=== PATIENT | female | born 1990 | race Caucasian/White ===

== ENCOUNTER 2022-06-25 19:43 | Emergency (ER) | payer BC ==
[~2022-06-25] VITALS: Ht 165.1 cm; Wt 136.4 kg
[~2022-06-25 19:43] MED LIST: LEXAPRO 10MG10 MG PO
[2022-06-25 19:51] VITALS: TEMP 97.9
[2022-06-25 22:58] LABS: COLLECTION METHOD CLEAN CATCH
[2022-06-25 23:07] LABS: SQUAMOUS EPITHELIAL None Seen /hpf (0-10); URINE BACTERIA Rare /hpf (NONE SEEN); URINE RBC 0-2 /hpf (0-2)
[2022-06-25 23:08] LABS: URINE APPEARANCE Clear (CLEAR/HAZY); URINE COLOR Yellow (YELLOW)
[2022-06-25 23:09] LABS: PH 5.5 (5-8); URINE BLOOD TRACE-INTACT (NEGATIVE); URINE GLUCOSE Negative (NEGATIVE); URINE KETONE Negative (NEGATIVE); URINE NITRATE Negative (NEGATIVE); URINE PROTEIN(semi-quant) Negative (NEGATIVE); URINE UROBILINOGEN 0.2 (NEGATIVE)
[2022-06-25 23:18] LABS: TRICYCLIC ANTIDEPRESS URINE NEGATIVE
[2022-06-25 23:20] LABS: BASO # 0.1 K/mm3 (0.0-0.2); BASO % 0.7 % (0.0-2.0); EOS # 0.2 K/mm3 (0.0-0.7); EOS % 2.1 % (0.0-4.0); GRAN # 4.5 K/mm3 (1.4-6.5); GRAN % 64.3 % (42.2-75.2); HEMOGLOBIN 12.5 g/dl (12.5-16.0); LYMPH # 1.8 K/mm3 (1.2-3.4); LYMPH % 25.5 % (20.0-51.0); MEAN CELL VOLUME 81 fl (80.0-100.0); MEAN CORPUSCULAR HEMOGLOBIN 27 pg (27-31); MEAN CORPUSCULAR HGB CONC 34 g/dl (33.0-37.0); MEAN PLATELET VOLUME 9.2 fl (7.4-10.4); MONO # 0.5 K/mm3 (0.1-0.6); MONO % 7.3 % (1.7-9.3); PLATELET COUNT 356 K/mm3 (130-400); RED BLOOD COUNT 4.57 M/mm3 (4.10-5.30); REDCELL DISTRIBUTION WIDTH-CV 14.2 % (11.5-14.5)
[2022-06-25 23:28] LABS: ALANINE AMINOTRANSFERASE 11 U/L (0-55); ALBUMIN 4.2 gm/dL (3.5-5.0); ALKALINE PHOSPHATASE 58 U/L (40-150); ANION GAP 10 mmol/L (7-16); AST,SGOT 13 U/L (5-34); BILIRUBIN,TOTAL 0.7 mg/dL (0.2-1.2); BLOOD UREA NITROGEN 8 mg/dL (7-19); CARBON DIOXIDE 20 mmol/L (22-29); CHLORIDE 110 mmol/L (98-107); GLUCOSE 105 mg/dL (70-99); POTASSIUM 3.6 mmol/L (3.5-4.5); SODIUM 140 mmol/L (136-145); TOTAL PROTEIN 7.7 gm/dL (6.2-8.1)
[2022-06-25 23:29] LABS: ACETAMINOPHEN < 1.0 ug/mL (10-30); ALCOHOL(ethanol),MEDICAL < 10 mg/dL (0-10); SALICYLATE < 5.0 mg/dL (15.0-30.0)
[2022-06-25 23:48] VITALS: BP 163/90; PULSE 87
[2022-06-25] MEDS ORDERED: WELLBUTRIN SR150 M1 PO (23:50)
== END 2022-06-26 00:06 | disposition home or self-care (01) ==
LOC: COL.ER 19:43
PROVIDERS: Emergency Medicine
DX: F31.9 Bipolar disorder, unspecified (principal); Z20.822 Contact with and (suspected) exposure to COVID-19